=== PATIENT | female | born 1965 | race Caucasian/White ===

== ENCOUNTER 2018-05-21 17:13 | Emergency (ER) | payer OTHER ==
[~2018-05-21] VITALS: Ht 162.6 cm; Wt 63.6 kg
[2018-05-21 18:11] LABS: BASOPHILS % (AUTO) 0.7 % (0.0-2.0); HEMATOCRIT 42.7 % (36-46); HEMOGLOBIN 14.7 g/dL (12.0-16.0); LYMPHOCYTES # (AUTO) 2.2 K/uL (1.0-4.8); LYMPHOCYTES % (AUTO) 28.4 % (22.0-44.0); MEAN CORPUSCULAR HEMOGLOBIN 31.8 pg (26.0-34.0); MEAN CORPUSCULAR HGB CONC 34.5 G/dL (31.0-37.0); MEAN CORPUSCULAR VOLUME 92 fL (80-100); MONOCYTES # (AUTO) 0.7 K/uL (0.1-1.0); MONOCYTES % (AUTO) 9.2 % (2.0-9.0); NEUTROPHILS # (AUTO) 4.6 K/uL (1.8-7.7); NEUTROPHILS % (AUTO) 59.7 % (40.0-70.0); PLATELET COUNT (AUTO) 291 K/uL (150-450); RED BLOOD CELL COUNT(AUTO) 4.63 MIL/uL (4.00-5.20); RED CELL DISTRIBUTION WIDTH 12.9 % (11.5-14.5)
[2018-05-21 18:18] LABS: ANION GAP 15 mmol/L (8-16); CALCIUM, TOTAL 9.4 mg/dL (8.8-10.5); CARBON DIOXIDE 21 mmol/L (22-29); CHLORIDE 104 mmol/L (98-107); CREATININE 0.81 mg/dL (0.60-1.30); GLOMERULAR FILTR. RATE CALC > 60 mL/min (>60); GLUCOSE,RANDOM 142 mg/dL (70-110); POTASSIUM 3.4 mmol/L (3.5-5.1); SODIUM SERUM 140 mmol/L (136-145); UREA NITROGEN, BLOOD 18 mg/dL (7-18)
[2018-05-21 18:23] LABS: ALANINE AMINOTRANSFERASE 24 U/L (12-78); ALBUMIN 3.2 g/dL (3.4-5.0); ALKALINE PHOSPHATASE 115 U/L (46-116); ASPARTATE AMINOTRANSFERASE 19 U/L (15-37); BILIRUBIN,TOTAL 0.2 mg/dL (0.1-1.0); TOTAL PROTEIN, SERUM 7.2 g/dL (6.4-8.2)
[2018-05-21 19:01] VITALS: BP 125/77
== END 2018-05-21 19:48 | disposition home or self-care (01) ==
LOC: EMS 17:13
DX: B86 Scabies (principal); F10.229 Alcohol dependence with intoxication, unspecified; F12.90 Cannabis use, unspecified, uncomplicated; F17.210 Nicotine dependence, cigarettes, uncomplicated; Y90.5 Blood alcohol level of 100-119 mg/100 ml; Z59.0 Homelessness
CPT/HCPCS: 36415; 80053; 85025; 99284; G0480

== ENCOUNTER 2020-12-17 01:22 | Emergency (ER) | payer OTHER ==
[~2020-12-17] VITALS: Ht 172.7 cm; Wt 72.7 kg
[2020-12-17] MEDS ORDERED: CefTRIAXone SODIUM 1 GM/VIAL IM ONE (02:00)
[2020-12-17] MEDS ORDERED: LIDOCAINE/PF 1% 2 ML VIAL IM ONE (02:00)
[2020-12-17] MEDS ORDERED: SULFAMETHOX/TRIMETH DS 800-160 MG/TABLET PO ONE (02:00)
[2020-12-17] MEDS ORDERED: CefTRIAXone 1 GM/DEXTROSE 50 ML IV ONE (02:30)
[2020-12-17] MEDS ORDERED: DOXYCYCLINE HYCLATE 100 MG in DEXTROSE 5%-WATER 100 ML IV ONE (02:30)
[2020-12-17 02:55] LABS: ANION GAP 13 mmol/L (8-16); CALCIUM, TOTAL 8.9 mg/dL (8.8-10.5); CARBON DIOXIDE 24 mmol/L (22-29); CHLORIDE 101 mmol/L (98-107); CREATININE 0.65 mg/dL (0.60-1.30); GLOMERULAR FILTR. RATE CALC > 60 mL/min (>60); GLUCOSE,RANDOM 99 mg/dL (70-110); POTASSIUM 3.8 mmol/L (3.5-5.1); SODIUM SERUM 138 mmol/L (136-145); UREA NITROGEN, BLOOD 17 mg/dL (7-18)
[2020-12-17 02:58] LABS: ALANINE AMINOTRANSFERASE 27 U/L (12-78); ALBUMIN 3.2 g/dL (3.4-5.0); ALKALINE PHOSPHATASE 124 U/L (46-116); ASPARTATE AMINOTRANSFERASE 21 U/L (15-37); BILIRUBIN,TOTAL 0.2 mg/dL (0.1-1.0); TOTAL PROTEIN, SERUM 7.7 g/dL (6.4-8.2)
[2020-12-17 03:06] LABS: BASOPHILS % (AUTO) 0.5 % (0.0-2.0); EOSINOPHILS % (AUTO) 1.2 % (1.0-6.0); HEMATOCRIT 39.7 % (36-46); HEMOGLOBIN 13.3 g/dL (12.0-16.0); LYMPHOCYTES # (AUTO) 1.9 K/uL (1.0-4.8); LYMPHOCYTES % (AUTO) 16.5 % (22.0-44.0); MEAN CORPUSCULAR HEMOGLOBIN 30.6 pg (26.0-34.0); MEAN CORPUSCULAR HGB CONC 33.5 G/dL (31.0-37.0); MEAN CORPUSCULAR VOLUME 91 fL (80-100); MONOCYTES # (AUTO) 0.8 K/uL (0.1-1.0); MONOCYTES % (AUTO) 6.6 % (2.0-9.0); NEUTROPHILS # (AUTO) 8.7 K/uL (1.8-7.7); NEUTROPHILS % (AUTO) 75.2 % (40.0-70.0); PLATELET COUNT (AUTO) 305 K/uL (150-450); RED BLOOD CELL COUNT(AUTO) 4.34 MIL/uL (4.00-5.20); RED CELL DISTRIBUTION WIDTH 13.2 % (11.5-14.5)
[2020-12-17 05:23] VITALS: BP 130/87
== END 2020-12-17 06:34 | disposition home or self-care (01) ==
LOC: EMS 01:24
DX: L03.114 Cellulitis of left upper limb (principal); F17.210 Nicotine dependence, cigarettes, uncomplicated; F12.90 Cannabis use, unspecified, uncomplicated
CPT/HCPCS: 36415; 80053; 85025; 96365; 96368; 99284; G0480; J0696; J3490; J7060

== ENCOUNTER 2021-04-03 05:21 | Emergency (ER) | payer OTHER ==
[~2021-04-03] VITALS: Ht 160 cm; Wt 72.7 kg
[2021-04-03 06:41] LABS: BASOPHILS % (AUTO) 0.8 % (0.0-2.0); EOSINOPHILS % (AUTO) 2.9 % (1.0-6.0); HEMATOCRIT 43.6 % (36-46); HEMOGLOBIN 14.5 g/dL (12.0-16.0); LYMPHOCYTES # (AUTO) 2.4 K/uL (1.0-4.8); LYMPHOCYTES % (AUTO) 29.3 % (22.0-44.0); MEAN CORPUSCULAR HEMOGLOBIN 30.7 pg (26.0-34.0); MEAN CORPUSCULAR HGB CONC 33.3 G/dL (31.0-37.0); MEAN CORPUSCULAR VOLUME 92 fL (80-100); MONOCYTES # (AUTO) 0.6 K/uL (0.1-1.0); MONOCYTES % (AUTO) 7.3 % (2.0-9.0); NEUTROPHILS # (AUTO) 4.9 K/uL (1.8-7.7); NEUTROPHILS % (AUTO) 59.7 % (40.0-70.0); PLATELET COUNT (AUTO) 237 K/uL (150-450); RED BLOOD CELL COUNT(AUTO) 4.73 MIL/uL (4.00-5.20)
[2021-04-03 06:47] LABS: ANION GAP 9 mmol/L (8-16); CALCIUM, TOTAL 8.8 mg/dL (8.8-10.5); CARBON DIOXIDE 26 mmol/L (22-29); CHLORIDE 103 mmol/L (98-107); CREATININE 0.76 mg/dL (0.60-1.30); GLOMERULAR FILTR. RATE CALC > 60 mL/min (>60); GLUCOSE,RANDOM 111 mg/dL (70-110); SODIUM SERUM 138 mmol/L (136-145); UREA NITROGEN, BLOOD 15 mg/dL (7-18)
[2021-04-03 06:53] LABS: ALANINE AMINOTRANSFERASE 36 U/L (12-78); ALBUMIN 3.6 g/dL (3.4-5.0); ALKALINE PHOSPHATASE 109 U/L (46-116); ASPARTATE AMINOTRANSFERASE 27 U/L (15-37); BILIRUBIN,TOTAL 0.4 mg/dL (0.1-1.0); INR 0.9 (0.9-1.1); PROTHROMBIN TIME 10.1 SEC (9.4-11.6); TOTAL PROTEIN, SERUM 7.4 g/dL (6.4-8.2)
[2021-04-03 06:57] LABS: APPEARANCE,URINE CLOUDY (CLEAR); BILIRUBIN,URINE NEGATIVE (NEGATIVE); GLUCOSE, URINE (UA) NEGATIVE (NEGATIVE); KETONES,URINE NEGATIVE (NEGATIVE); LEUKOCYTE ESTERASE ,URINE LARGE (NEGATIVE); NITRATE,URINE POSITIVE (NEGATIVE); OCCULT BLOOD,URINE SMALL (NEGATIVE); PROTEIN,URINE POS 1+ (NEGATIVE); UROBILINOGEN,URINE 0.2 mg/dL (<=1.0)
[2021-04-03 07:09] LABS: B-TYPE NATRIURETIC PEPTIDE 6 pg/mL (0-100)
[2021-04-03] MEDS ORDERED: CefTRIAXone 1 GM/DEXTROSE 50 ML IV ONE (07:45)
[2021-04-03 07:47] LABS: BACTERIA,URINE Many /HPF (None Seen); SQUAMOUS EPITHELIAL CELL,UR Moderate /LPF (None Seen); WBC,URINE 26-50 /HPF (0-5)
[2021-04-03 08:27] VITALS: BP 136/93
[2021-04-03 09:07] LABS: COVID AG,FIA SOURCE NASAL SWAB
== END 2021-04-03 08:53 | disposition home or self-care (01) ==
LOC: EMS 05:21
DX: J20.9 Acute bronchitis, unspecified (principal); N39.0 Urinary tract infection, site not specified; F17.210 Nicotine dependence, cigarettes, uncomplicated; F12.90 Cannabis use, unspecified, uncomplicated; Z20.822 Contact with and (suspected) exposure to COVID-19; Z59.0 Homelessness
CPT/HCPCS: 36415; 71045; 80053; 81001; 83880; 84484; 85025; 85610; 85730; 87077; 87086; 87186; 87426; 93005; 96365; 99285; C9803; G0480; J0696

== ENCOUNTER 2022-12-26 11:00 | Emergency (ER) | payer OTHER ==
[~2022-12-26] VITALS: Ht 162.6 cm; Wt 77.3 kg
[~2022-12-26 11:00] MED LIST: CIPR-278 PO
[2022-12-26] MEDS ORDERED: FUROSEMIDE 20 MG TABLET PO ONE (12:15)
[2022-12-26] MEDS ORDERED: IBUPROFEN 600 MG TABLET PO ONE (12:15)
[2022-12-26] MEDS ORDERED: CEPHALEXIN MONOHYDRATE 500 MG CAPSULE PO ONE (12:15)
[2022-12-26] MEDS ORDERED: CEPH-558 PO (13:42)
[2022-12-26 13:58] VITALS: BP 141/85
== END 2022-12-26 14:11 | disposition home or self-care (01) ==
LOC: EMS 11:09
DX: H60.11 Cellulitis of right external ear (principal); E78.00 Pure hypercholesterolemia, unspecified; F17.210 Nicotine dependence, cigarettes, uncomplicated; G89.29 Other chronic pain; Z59.00 Homelessness unspecified; Z90.49 Acquired absence of other specified parts of digestive tract; Z98.890 Other specified postprocedural states
CPT/HCPCS: 99284; Z7502; Z7610

== ENCOUNTER 2023-03-26 13:50 | Emergency (ER) | payer OTHER ==
[~2023-03-26] VITALS: Ht 162.6 cm; Wt 72.7 kg
[~2023-03-26 13:50] MED LIST changes: +CEPH-558 PO; -CIPR-278 PO
[2023-03-26 14:08] VITALS: TEMP 97.8
[2023-03-26] MEDS ORDERED: KETOROLAC TROMETHAMINE 30 MG/ML VIAL IM ONE (15:30)
[2023-03-26 15:35] LABS: BASOPHILS % (AUTO) 0.6 % (0.0-2.0); EOSINOPHILS % (AUTO) 1.8 % (1.0-6.0); HEMATOCRIT 50.8 % (36-46); HEMOGLOBIN 16.8 g/dL (12.0-16.0); LYMPHOCYTES # (AUTO) 2.6 K/uL (1.0-4.8); LYMPHOCYTES % (AUTO) 22.4 % (22.0-44.0); MEAN CORPUSCULAR HEMOGLOBIN 31.2 pg (26.0-34.0); MEAN CORPUSCULAR VOLUME 94 fL (80-100); MONOCYTES # (AUTO) 0.9 K/uL (0.1-1.0); NEUTROPHILS # (AUTO) 7.9 K/uL (1.8-7.7); NEUTROPHILS % (AUTO) 67.2 % (40.0-70.0); PLATELET COUNT (AUTO) 289 K/uL (150-450); RED BLOOD CELL COUNT(AUTO) 5.38 MIL/uL (4.00-5.20); RED CELL DISTRIBUTION WIDTH 14.2 % (11.5-14.5)
[2023-03-26 15:44] LABS: ANION GAP 7 mmol/L (8-16); CARBON DIOXIDE 26 mmol/L (22-29); CHLORIDE 103 mmol/L (98-107); CREATININE 0.84 mg/dL (0.60-1.30); GLUCOSE,RANDOM 107 mg/dL (70-110); POTASSIUM 4.3 mmol/L (3.5-5.1); SODIUM SERUM 136 mmol/L (136-145)
[2023-03-26 15:45] LABS: GLOMERULAR FILTR. RATE CALC > 60 mL/min (>60)
[2023-03-26 15:51] LABS: ALANINE AMINOTRANSFERASE 45 U/L (12-78); ALBUMIN 3.8 g/dL (3.4-5.0); ALKALINE PHOSPHATASE 100 U/L (46-116); ASPARTATE AMINOTRANSFERASE 45 U/L (15-37); BILIRUBIN,TOTAL 0.4 mg/dL (0.1-1.0); LIPASE 84 U/L (73-393); TOTAL PROTEIN, SERUM 8.2 g/dL (6.4-8.2)
[2023-03-26] MEDS ORDERED: CEPH-558 PO (16:38)
[2023-03-26] MEDS ORDERED: IBUP-1492 PO (16:38)
[2023-03-26] MEDS ORDERED: LIDOCAINE/PF 1% 2 ML VIAL IM ONE (16:45)
[2023-03-26] MEDS ORDERED: CefTRIAXone SODIUM 1 GM/VIAL IM ONE (16:45)
[2023-03-26 18:15] VITALS: BP 132/83; PULSE 92; RESP 18
== END 2023-03-26 18:48 | disposition home or self-care (01) ==
LOC: EMS 13:52
DX: N39.0 Urinary tract infection, site not specified (principal); M54.9 Dorsalgia, unspecified; E78.00 Pure hypercholesterolemia, unspecified; G89.29 Other chronic pain; F17.210 Nicotine dependence, cigarettes, uncomplicated; Z90.49 Acquired absence of other specified parts of digestive tract; Z98.890 Other specified postprocedural states; Z59.00 Homelessness unspecified
CPT/HCPCS: 80053; 83690; 85025; 36415; 72100; 99284; 96372; J0696; J1885; J3490

== ENCOUNTER 2024-07-13 06:17 | Day surgery (SDC) | payer OTHER ==
[~2024-07-13] VITALS: Ht 160 cm; Wt 71.4 kg
[~2024-07-13 06:17] MED LIST changes: +IBUP-1492 PO; +SODIUM CHLORIDE 0.9% 1,000 ML ONE
[2024-07-13] MEDS ORDERED: SILD20TA PO (06:45)
[2024-07-13] MEDS ORDERED: ASPI-1444 PO (06:45)
[2024-07-13] MEDS ORDERED: ATOR40TA71 PO (06:45)
[2024-07-13] MEDS ORDERED: FOLI-130 PO (06:45)
[2024-07-13] MEDS ORDERED: FURO40 PO (06:45)
[2024-07-13] MEDS ORDERED: SODIUM CHLORIDE 0.9% 1,000 ML IV ONE (07:00)
[2024-07-13] MEDS ORDERED: OXYGEN THERAPY IH SCH (08:45)
[2024-07-13] MEDS ORDERED: LIDOCAINE/PF 2% 5 ML SYRINGE IVP ONE (12:00)
[2024-07-13] MEDS ORDERED: PROPOFOL 1% 20 ML VIAL IVP ONE (12:00)
[2024-07-13] MEDS ORDERED: GLYCOPYRROLATE 0.2 MG/ML VIAL IM ONE (12:00)
== END 2024-07-13 10:25 | disposition home or self-care (01) ==
LOC: SURGERY 06:17
PROVIDERS: ATTEND Specialist
DX: R10.13 Epigastric pain (principal); K29.50 Unspecified chronic gastritis without bleeding; K44.9 Diaphragmatic hernia without obstruction or gangrene; I27.20 Pulmonary hypertension, unspecified; I11.0 Hypertensive heart disease with heart failure; I50.9 Heart failure, unspecified; J44.9 Chronic obstructive pulmonary disease, unspecified; K21.9 Gastro-esophageal reflux disease without esophagitis; R94.31 Abnormal electrocardiogram [ECG] [EKG]; E78.00 Pure hypercholesterolemia, unspecified; Z87.891 Personal history of nicotine dependence; Z79.82 Long term (current) use of aspirin; Z79.899 Other long term (current) drug therapy; Z98.891 History of uterine scar from previous surgery
CPT/HCPCS: 43239; 88313; 88305; 88312; 93005; J2704; J3490 ×2; J7030